=== PATIENT | male | born 1965 | race African-American/Black ===

== ENCOUNTER 2018-02-24 20:50 | Emergency (ER) | payer MEDICAID, MEDICARE ==
[2018-02-24] MEDS ORDERED: HYDROCODONE/APAP 10/325 TABLET PO ONE (21:12)
--- NOTE | 2018-02-24 21:20 | Emergency Department Record ---
History of Present Illness - General Chief complaint: Lower Extremity Pain Stated complaint: rt leg pain/gout Time Seen by Provider: 02/24/18 21:06 Source: Patient, Family Mode of Arrival: Ambulatory Limitations: No limitations - History of Present Illness Initial comments: 52 yo male presents with right foot pain. The pain started around 5pm. At first his knee hurt. The pain now is in the right foot near the great toe. No trauma or injury today. No swelling, warmth, coolness, rash. He has gout. He states his gout pain has started like this in the past. No weakness, calf swelling, thigh swelling, tingling, numbness. No chest, back, abdominal or thigh pain. He states the bottom of his foot hurts to put weight on with standing. The knee does not hurt with movement or standing. No hip pain with standing. MD Complaint: Joint pain (knee and foot) Onset/Timin -: Hour(s) Location: Right, Knee History of Same: No (gout in toe, not knee) -: Yes Arthralgia Radiation: Distal Severity scale (1-10): 10 Quality: Aching, Sharp Consistency: Constant, Getting worse Improves with: Movement Worsens with: Other Associated Symptoms: Denies other symptoms - Related Data Home Medications Medication Instructions Recorded Confirmed Last Taken Allopurinol 100 mg PO DAILY 02/24/18 02/24/18 02/24/18 Carvedilol 25 mg PO DAILY 02/24/18 02/24/18 02/24/18 Lisinopril/Hydrochlorothiazide 1 tab PO DAILY 02/24/18 02/24/18 02/24/18 [Lisinopril-Hctz 20-25 mg Tab] Metformin HCl 1,000 mg PO BID 02/24/18 02/24/18 02/24/18 Ranitidine HCl [Acid Speech Language Pathology Assistant] 150 mg PO DAILY 02/24/18 02/24/18 02/24/18 Trazodone HCl 150 mg PO QHS 02/24/18 02/24/18 02/24/18 Verapamil HCl [Verapamil ER] 180 mg PO DAILY 02/24/18 02/24/18 02/24/18 Previous Rx's Medication Instructions Recorded Methylprednisolone [Medrol Dose 4 mg PO DAILY #1 tab.ds.pk 02/24/18 Pack] Allergies Allergy/AdvReac Type Severity Reaction Status Date / Time Penicillins AdvReac HIVES Verified 02/24/18 21:06 Travel Screening - Travel/Exposure Within Last 30 Days Have you traveled within the last 30 days?: No - Travel Symptoms Symptom Screening: None Review of Systems Constitutional: Denies: Chills, Fever, Malaise, Weakness Eyes: Denies: Eye discharge ENT: Denies: Congestion, Throat pain Respiratory: Denies: Cough, Dyspnea Cardiovascular: Denies: Chest pain, Syncope Endocrine: Denies: Fatigue Gastrointestinal: Denies: Abdominal pain, Diarrhea, Nausea, Vomiting Genitourinary: Denies: Dysuria, Frequency, Hematuria Musculoskeletal: Reports: Arthralgia. Denies: Back pain, Joint swelling, Myalgia, Neck pain Skin: Denies: Bruising, Change in color, Rash Neurological: Denies: Headache, Numbness, Weakness Psychiatric: Denies: Anxiety Hematological/Lymphatic: Denies: Blood Clots, Easy bleeding, Easy bruising, Swollen glands Past Medical History - SOCIAL HISTORY Smoking Status: Never smoker Alcohol Use: None Drug Use: None - RESPIRATORY Hx Respiratory Disorders: No - CARDIOVASCULAR Hx Cardio Disorders: Yes Hx Hypertension: Yes - NEURO Hx Neuro Disorders: No - GI Hx GI Disorders: Yes Hx GI Bleed: Yes - Hx Genitourinary Disorders: No - ENDOCRINE Hx Endocrine Disorders: Yes Hx Diabetes: Yes - MUSCULOSKELETAL Hx Musculoskeletal Disorders: Yes Hx Gout: Yes - PSYCH Hx Psych Problems: No - HEMATOLOGY/ONCOLOGY Hx Hematology/Oncology Disorders: No Family Medical History Any Significant Family History?: Yes Hx Diabetes: Mother Hx Heart Disease: Mother Hx HTN: Mother Course Vital Signs 02/24/18 20:57 Temperature 98.5 F Pulse Rate [ 69 Pulse Ox Probe] Respiratory 28 H Rate Pulse Ox 97 - Reevaluation(s) Reevaluation #1: 02/24/18 21:50 No acute changes on the CBC or BMP 02/24/18 21:56 Uric acid is elevated at 8.1 02/24/18 22:07 Xray is negative mild arthritic changes. Medical Decision Making - Lab Data Result diagrams: 02/24/18 21:25 02/24/18 21:25 Disposition Disposition: Discharge Clinical Impression: Foot pain, right, Elevated uric acid in blood Disposition: Home, Self-Care Condition: (1) Good Instructions: Gout (ED) Additional Instructions: Elevate the leg and ice to minimize if any swelling Be seen immediately if the knee or foot become more painful, red, warm, cold, swollen Prescriptions: Methylprednisolone [Medrol Dose Pack] 4 mg PO DAILY #1 tab.ds.pk Forms: Patient Portal Access Time of Disposition: 22:03 Quality - Quality Measures Quality Measures: N/A - Blood Pressure Screening Does Patient Have Any of the Following: Active Dx of HTN Blood Pressure Classification: Hypertensive Reading Systolic Measurement: 184 Diastolic Measurement: 120 Screening for High Blood Pressure: Patient Exclusion, Hx of HTN [G9744] Pre-Hypertensive Follow-up Interventions: Referral to alternative/primary care provider.
[2018-02-24 21:32] LABS: BASO % 0.3 % (0-6); EOS % 2.2 % (0-6); GRAN % 63.9 % (47-80); LYMPH % 23.9 % (16-45); MEAN CORPUSCULAR HEMOGLOBIN 27.7 pg (27-33); MEAN CORPUSCULAR HGB CONC 32.6 g/dl (32-36); MEAN PLATELET VOLUME 9.1 fl (7.4-10.4); MONO % 9.7 % (0-9); PLATELET COUNT 324 K/uL (130-400); RED BLOOD COUNT 5.41 M/uL (4.40-5.70); RED CELL DISTRIBUTION WIDTH 13.5 % (11.5-14.5); WHITE BLOOD COUNT W/O DIFF 6.8 K/uL (4.2-12.2)
[2018-02-24 21:45] LABS: BLOOD UREA NITROGEN 16 mg/dL (6-20); EST GLOMERULAR FILTRATION RATE > 60 mL/min
[2018-02-24 21:48] LABS: GLUCOSE,RANDOM 122 mg/dL (74-109)
[2018-02-24] MEDS ORDERED: METHYLPREDNISOLONE 80MG/VIAL IM ONE (21:56)
[2018-02-24] MEDS ORDERED: HYDROCODONE/APAP 7.5/325MG TABLET PO ONE (22:04)
--- NOTE | 2018-02-27 13:42 | RADIOLOGY REPORT ---
EXAM: RIGHT FOOT HISTORY: RIGHT FOOT PAIN. PREVIOUS GOUT FLARE-UPS. TECHNIQUE: Three views of the right foot were obtained. Comparison: None. FINDINGS: The bones are intact. There is no acute fracture or dislocation. There are diffuse arthritic changes within the mid foot. Mild arthritic changes are present within the great toe and first metatarsal phalangeal joint. Plantar and posterior calcaneal spurs are present. Enthesophyte formation is present at the base of the fifth metatarsal. There are no osseous erosions. No focal soft tissue abnormality is identified. IMPRESSION: 1. DIFFUSE ARTHRITIC CHANGES ABOVE. 2. NO ACUTE RIGHT FOOT PATHOLOGY. JOB NUMBER: [id number] [facility]
== END 2018-02-24 22:27 | disposition home or self-care (01) ==
LOC: ER 20:50
DX: M79.671 Pain in right foot (principal); E79.0 Hyperuricemia without signs of inflammatory arthritis and tophaceous disease; I10 Essential (primary) hypertension; E11.9 Type 2 diabetes mellitus without complications; Z79.84 Long term (current) use of oral hypoglycemic drugs
CPT/HCPCS: 99283; 96372; 99284; 84550; 85025; 80048; 73630; J3490; J1040

== ENCOUNTER 2018-02-25 18:54 | Emergency (ER) | payer MEDICARE ==
--- NOTE | 2018-02-25 19:35 | Emergency Department Record ---
History of Present Illness - General Chief Complaint: Ankle/Foot Injury Stated Complaint: RT FOOT PAIN -GOUT Time Seen by Provider: 02/25/18 19:20 Source: Patient Mode of Arrival: Ambulatory Limitations: No limitations - History of Present Illness Initial Comments: pt here last night for gout. pt states he was unable to sleep. he states he was here last night and was started on steroids. he has no hx of ulcers and no his of kidney problems. xrays were neg last pm except for arthritic changes. uric acid is elevated MD Complaint: Other Onset/Timin -: Days(s) Injury: Foot: Right Type of Injury: Other Place: Home Severity: Moderate Severity scale (1-10): 7 Improves With: Other Worsens With: Other Context: Other Associated Symptoms: Ambulatory Treatments Prior to Arrival: Other - Related Data Previous Rx's Medication Instructions Recorded Methylprednisolone [Medrol Dose 4 mg PO DAILY #1 tab.ds.pk 02/24/18 Pack] Hydrocodone/Acetaminophen [Cocoa 1 each PO Q6HR #7 tablet 02/25/18 5-325 Tablet] Indomethacin [Indocin] 25 mg PO BID #14 capsule 02/25/18 Allergies Allergy/AdvReac Type Severity Reaction Status Date / Time Penicillins AdvReac HIVES Verified 02/24/18 21:06 Travel Screening - Travel/Exposure Within Last 30 Days Have you traveled within the last 30 days?: No - Travel Symptoms Symptom Screening: None Review of Systems Reviewed: No additional complaints except as noted below Constitutional: Reports: As per HPI. Denies: Chills, Fever, Malaise, Night sweats, Weakness, Weight change Eyes: Reports: As per HPI. Denies: Eye discharge, Eye pain, Photophobia, Vision change ENT: Reports: As per HPI. Denies: Congestion, Dental pain, Ear pain, Epistaxis , Hearing loss, Throat pain Respiratory: Reports: As per HPI. Denies: Cough, Dyspnea, Hemoptysis, Stridor, Wheezes Cardiovascular: Reports: As per HPI. Denies: Arrhythmia, Chest pain, Dyspnea on exertion, Edema, Murmurs, Orthopnea, Palpitations, Paroxysmal nocturnal dyspnea, Rheumatic Fever, Syncope Endocrine: Reports: As per HPI. Denies: Fatigue, Heat or cold intolerance, Polydipsia, Polyuria Gastrointestinal: Reports: As per HPI. Denies: Abdominal pain, Constipation, Diarrhea, Hematemesis, Hematochezia, Melena, Nausea, Vomiting Genitourinary: Reports: As per HPI. Denies: Dysuria, Frequency, Hematuria, Incontinence, Retention, Testicular pain, Testicular mass, Urgency Musculoskeletal: Reports: As per HPI. Denies: Arthralgia, Back pain, Gout, Joint swelling, Myalgia, Neck pain Skin: Reports: As per HPI. Denies: Bruising, Change in color, Change in hair/ nails, Lesions, Pruritus, Rash Neurological: Reports: As per HPI. Denies: Abnormal gait, Confusion, Headache, Numbness, Paresthesias, Seizure, Tingling, Tremors, Vertigo, Weakness Psychiatric: Reports: As per HPI. Denies: Anxiety, Auditory hallucinations, Depression, Homicidal thoughts, Suicidal thoughts, Visual hallucinations Hematological/Lymphatic: Reports: As per HPI. Denies: Anemia, Blood Clots, Easy bleeding, Easy bruising, Swollen glands Past Medical History - SOCIAL HISTORY Smoking Status: Never smoker Alcohol Use: None Drug Use: None - RESPIRATORY Hx Respiratory Disorders: No - CARDIOVASCULAR Hx Cardio Disorders: Yes Hx Hypertension: Yes - NEURO Hx Neuro Disorders: No - GI Hx GI Disorders: Yes Hx GI Bleed: Yes - Hx Genitourinary Disorders: No - ENDOCRINE Hx Endocrine Disorders: Yes Hx Diabetes: Yes - MUSCULOSKELETAL Hx Musculoskeletal Disorders: Yes Hx Gout: Yes - PSYCH Hx Psych Problems: No - HEMATOLOGY/ONCOLOGY Hx Hematology/Oncology Disorders: No Family Medical History Any Significant Family History?: Yes Hx Diabetes: Mother Hx Heart Disease: Mother Hx HTN: Mother Physical Exam - General General Appearance: Alert, Oriented x3, Cooperative, Mild distress - Head Head exam: Normal inspection - Eye Eye exam: Normal appearance, PERRL, EOMI Pupils: Normal accommodation - ENT ENT exam: Normal exam, Mucous membranes moist, Normal external ear exam, Normal orophraynx Ear exam: Normal external inspection. negative: External canal tenderness Nasal Exam: Normal inspection. negative: Discharge, Sinus tenderness Mouth exam: Normal external inspection, Tongue normal Teeth exam: Normal inspection. negative: Dental caries Throat exam: Normal inspection. negative: Tonsillar erythema, Tonsillar exudate - Neck Neck exam: Normal inspection, Full ROM. negative: Tenderness - Respiratory Respiratory exam: Normal lung sounds bilaterally. negative: Respiratory distress - Cardiovascular Cardiovascular Exam: Regular rate, Normal rhythm, Normal heart sounds - GI/Abdominal GI/Abdominal exam: Soft, Normal bowel sounds. negative: Tenderness - Rectal Rectal exam: Deferred - exam: Deferred - Extremities Extremities exam: Normal inspection, Full ROM, Normal capillary refill, Tenderness (r great toe) - Back Back exam: Reports: Normal inspection, Full ROM. Denies: Muscle spasm, Rash noted, Tenderness - Neurological Neurological exam: Alert, CN II-XII intact, Normal gait, Oriented X3 - Psychiatric Psychiatric exam: Normal affect, Normal mood - Skin Skin exam: Dry, Intact, Normal color, Warm Course Vital Signs 02/25/18 19:14 Temperature 98.6 F Pulse Rate [ 73 Pulse Ox Probe] Respiratory 20 Rate Blood Pressure 183/95 [Left Arm] Pulse Ox 97 Disposition Disposition: Discharge Clinical Impression: Gout attack Qualifiers: Gout site: foot Gout etiology: unspecified cause Laterality: right Qualified Code(s): M10.9 - Gout, unspecified Disposition: Home, Self-Care Condition: (1) Good Instructions: Gout (ED), Low Purine Diet (ED) Additional Instructions: follow up with family doctor. return sooner if worse. ice and elevate foot Prescriptions: Hydrocodone/Acetaminophen [Cocoa 5-325 Tablet] 1 each PO Q6HR #7 tablet Indomethacin [Indocin] 25 mg PO BID #14 capsule Quality - Quality Measures Quality Measures: N/A - Blood Pressure Screening Does Patient Have Any of the Following: Active Dx of HTN Blood Pressure Classification: Hypertensive Reading Systolic Measurement: 183 Diastolic Measurement: 95 Screening for High Blood Pressure: Patient Exclusion, Hx of HTN [G9744]
== END 2018-02-25 19:47 | disposition home or self-care (01) ==
LOC: ER 18:54
DX: M10.071 Idiopathic gout, right ankle and foot (principal); I10 Essential (primary) hypertension
CPT/HCPCS: 99282